=== PATIENT | female | born 2000 | race Two or more races ===

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

== ENCOUNTER 2024-02-28 08:15 | Outpatient (CLI) | payer OTHER ==
[~2024-02-28 08:15] MED LIST: ANTICONCEPTIVOS; CEFUROXIME500 MG PO; PEPCID40 MG PO; ZOFRAN8 MG PO
== END 2024-02-28 08:16 | disposition home or self-care (01) ==
LOC: NUCLEAR 08:15
PROVIDERS: ATTEND Internal Medicine Cardiovascular Disease
DX: R07.9 Chest pain, unspecified (principal)

== ENCOUNTER 2024-02-29 08:18 | Outpatient (CLI) | payer OTHER | END 2024-02-29 08:19 | disposition home or self-care (01) | LOC: NUCLEAR 08:18 | PROVIDERS: ATTEND Internal Medicine Cardiovascular Disease | DX: R07.9 Chest pain, unspecified (principal) ==

== ENCOUNTER 2024-11-02 00:59 | Emergency (ER) | payer OTHER ==
[~2024-11-02] VITALS: Ht 157.5 cm; Wt 44.0 kg
[2024-11-02] MEDS ORDERED: CLONAZEPAM 0.5 MG TABLET PO STA (01:56)
[2024-11-02 02:15] LABS: BASO % 0.6 % (0.1-1.2); EOS # 0.10 (0.04-0.54); EOS % 1.2 % (0.7-7.0); LYMPH # 2.93 (1.18-3.74); LYMPH % 35.3 % (19.3-53.1); MEAN PLATELET VOLUME 11.70 fl (9.4-12.4); MONO # 0.55 (0.24-0.82); MONO % 6.6 % (4.7-12.5); NEUT # 4.66 (1.56-6.13); NEUT % 56.2 % (34.0-71.1); RED CELL DISTRIBUTION WIDTH 12.4 % (11.6-14.4)
[2024-11-02 02:34] LABS: BUN CREA RATIO 13.0 (7.0-25.0); CREATININE SERUM 0.68 mg/dL (0.55-1.02); GFR 107.22; GLUCOSE FASTING 110.0 mg/dL (65-100); OSMOLALITY SERUM 284.0 MOSM/KG (275-295)
== END 2024-11-02 03:57 | disposition home or self-care (01) ==
LOC: ER 00:59
DX: F41.1 Generalized anxiety disorder (principal)

== ENCOUNTER 2025-01-15 15:46 | Emergency (ER) | payer OTHER ==
[~2025-01-15] VITALS: Ht 157.5 cm; Wt 46.3 kg
[2025-01-15 15:51] VITALS: BP 116/82; O2SAT 100
[2025-01-15] MEDS ORDERED: POVIDONE-IODINE 118 ML BOTT TOP ONE (17:19)
[2025-01-15 17:46] LABS: BASO % 0.9 % (0.1-1.2); EOS # 0.11 (0.04-0.54); EOS % 2.0 % (0.7-7.0); LYMPH # 1.41 (1.18-3.74); LYMPH % 25.7 % (19.3-53.1); MEAN PLATELET VOLUME 11.80 fl (9.4-12.4); MONO # 0.85 (0.24-0.82); NEUT # 3.06 (1.56-6.13); NEUT % 55.9 % (34.0-71.1); RED CELL DISTRIBUTION WIDTH 12.4 % (11.6-14.4)
[2025-01-15 18:09] LABS: MONO % 15.5 % (4.7-12.5)
[2025-01-15 18:13] LABS: BUN CREA RATIO 11.0 (7.0-25.0); CREATININE SERUM 0.73 mg/dL (0.55-1.02); GFR 98.79; GLUCOSE FASTING 88.0 mg/dL (65-100); OSMOLALITY SERUM 279.0 MOSM/KG (275-295)
[2025-01-15 18:24] LABS: URINE APPEARANCE Clear; URINE BILIRRUBIN Negative (NEGATIVE); URINE BLOOD Moderate; URINE COLOR Yellow; URINE GLUCOSE Negative (NEGATIVE); URINE KETONE Negative (NEGATIVE); URINE LEUKOCYTE Moderate; URINE NITRATE Negative; URINE PROTEIN Negative (NEGATIVE); URINE UROBILINOGEN 0.2 E.U./dl
[2025-01-15 18:27] LABS: URINE EPITHELIAL CELLS 6.1 uL (0.0-38.8); URINE RBC 6.3 uL (0.0-20.8); URINE WBC 680.2 uL (0.0-23.2)
[2025-01-15 18:58] LABS: URINE BACTERIA > 9821.5 uL (0.0-1933); URINE CAST 0.00 uL (0.0-1.40)
[2025-01-15] MEDS ORDERED: PYRIDIUM100 M1 PO (19:04)
[2025-01-15] MEDS ORDERED: MACROBID 100 M100 MG PO (19:04)
[2025-01-15] MEDS ORDERED: CEFTRIAXONE SODIUM 1,000 MG VIAL ONE (19:21)
[2025-01-15] MEDS ORDERED: CEFTRIAXONE SODIUM 1,000 MG VIAL IM ONE (19:30)
== END 2025-01-15 19:31 | disposition home or self-care (01) ==
LOC: ER 15:46
PROVIDERS: General Practice
DX: N39.0 Urinary tract infection, site not specified (principal); R30.0 Dysuria; B96.4 Proteus (mirabilis) (morganii) as the cause of diseases classified elsewhere